=== PATIENT | female | born 1985 | race Caucasian/White ===

== ENCOUNTER 2019-05-28 15:41 | Emergency (ER) | payer OTHER, SELFPAY ==
[2019-05-28] MEDS ORDERED: Ondansetron ODT 4 MG TAB ONE (16:43)
[2019-05-28] MEDS ORDERED: Morphine 4 MG/ML VIAL ONE (16:43)
--- NOTE | 2019-05-28 21:32 | RAD ---
LEFT ELBOW FOUR VIEWS: 05/28/19 There is a fracture through the radial head. There is at least a longitudinal component that goes int o the middle to outer third of the articular surface of the head, as well as a horizontal component t hrough the radial neck. There is slight displacement of fragments. The ulna appears intact. IMPRESSION: Radial head fracture. POS: HOME
--- NOTE | 2019-05-28 21:42 | RAD ---
LEFT WRIST THREE VIEWS: 05/28/19 No fracture was seen. The carpal bones appear intact and the carpal relationships seen normal. IMPRESSION: No acute finding. POS: HOME
== END 2019-05-28 16:47 | disposition home or self-care (01) ==
LOC: BURERS 15:41
DX: S52.122A Displaced fracture of head of left radius, initial encounter for closed fracture (principal); F17.210 Nicotine dependence, cigarettes, uncomplicated; W18.30XA Fall on same level, unspecified, initial encounter
CPT/HCPCS: 96372; J2270; Q0162